=== PATIENT | male | born 1955 | race Caucasian/White ===

== ENCOUNTER 2020-03-06 04:17 | Observation (INO) ==
[2020-03-06] MEDS ORDERED: Naloxone 0.4 MG/ML INJ IVP PRN (07:52)
[2020-03-06] MEDS ORDERED: Ondansetron 4 MG/2 ML VIAL IVP PRN (07:52)
[2020-03-06 13:36] LABS: Basophils # 0.1 K/mcL (0.0-0.2); Basophils % 0.5 %; Eosinophils # 0.2 K/mcL (0.0-0.6); Eosinophils % 1.4 %; Hematocrit 37.1 % (37.5-50.1); Hemoglobin 11.5 g/dL (12.9-16.9); Immature Granulocytes % 0.4 % (0-4); Lymphocytes # 1.5 K/mcL (0.6-4.6); Lymphocytes % 10.7 %; Mean Corpuscular Hemoglobin 31.8 pg (28.0-33.3); Mean Corpuscular Volume 102.5 fL (83.0-100.0); Mean Platelet Volume 10.6 fL (9.4-12.4); Monocytes # 1.1 K/mcL (0.0-1.3); Monocytes % 7.8 %; Neutrophils # 11.1 K/mcL (1.6-8.9); Platelet Count 246 K/mcL (140-400); Red Blood Count 3.62 M/mcL (4.19-5.50); Red Cell Distribution Width 14.4 % (11.5-14.5); Segmented Neutrophils % 79.2 %
[2020-03-06] MEDS: Artificial Tears SOLN 15 ML BOTTLE BOTH EYES SCH (20:59)
[2020-03-06] MEDS: Mirtazapine 15 MG TABLET PO SCH (20:59)
[2020-03-06] MEDS: Divalproex Sodium 125 MG CAPSULE PO SCH (20:59)
[2020-03-06] MEDS: Gabapentin 300 MG CAPSULE PO SCH (20:59)
[2020-03-06] MEDS: MetroNIDAZOLE 500 MG/100 ML 500 MG/100 ML BAG IVPB SCH (23:36)
[2020-03-07] MEDS: MetroNIDAZOLE 500 MG/100 ML 500 MG/100 ML BAG IVPB SCH ×2 (07:37→16:00)
[2020-03-07] MEDS: Gabapentin 300 MG CAPSULE PO SCH ×2 (07:40→21:28)
[2020-03-07] MEDS: Artificial Tears SOLN 15 ML BOTTLE BOTH EYES SCH ×2 (07:40→21:28)
[2020-03-07] MEDS: Loratadine 10 MG TABLET PO SCH (07:40)
[2020-03-07] MEDS: Divalproex Sodium 125 MG CAPSULE PO SCH ×2 (07:40→21:28)
[2020-03-07] MEDS: *HR* Digoxin 0.125 MG TABLET PO SCH (07:40)
[2020-03-07] MEDS: Cyanocobalamin (B-12) 1,000 MCG TABLET PO SCH (07:40)
[2020-03-07 14:17] LABS: Basophils # 0.1 K/mcL (0.0-0.2); Basophils % 0.4 %; Eosinophils % 0.2 %; Hematocrit 33.3 % (37.5-50.1); Hemoglobin 10.8 g/dL (12.9-16.9); Immature Granulocytes % 0.6 % (0-4); Lymphocytes # 1.4 K/mcL (0.6-4.6); Mean Corpuscular HGB Conc 32.4 g/dL (31.6-35.5); Mean Corpuscular Hemoglobin 31.6 pg (28.0-33.3); Mean Corpuscular Volume 97.4 fL (83.0-100.0); Mean Platelet Volume 10.7 fL (9.4-12.4); Monocytes # 1.2 K/mcL (0.0-1.3); Monocytes % 7.1 %; Neutrophils # 14.4 K/mcL (1.6-8.9); Platelet Count 232 K/mcL (140-400); Red Blood Count 3.42 M/mcL (4.19-5.50); Segmented Neutrophils % 83.7 %; White Blood Count 17.3 K/mcL (4.3-11.1)
[2020-03-07 14:31] LABS: BUN/Creatinine Ratio 21 (6-26); Blood Urea Nitrogen 18 mg/dL (8-23); Calcium 8.3 mg/dL (8.6-10.3); Carbon Dioxide 25 mEq/L (23-29); Chloride 109 mEq/L (98-107); Glucose 89 mg/dL (70-105); Magnesium 1.6 mg/dL (1.6-2.6); Osmolality,Calculated 293 (280-300); Sodium 141 mEq/L (136-145); eGFR For African Americans > 60 (> 60); eGFR For Non-African Americans > 60 (> 60)
[2020-03-07] MEDS: Mirtazapine 15 MG TABLET PO SCH (21:28)
[2020-03-08] MEDS: MetroNIDAZOLE 500 MG/100 ML 500 MG/100 ML BAG IVPB SCH ×3 (00:17→17:40)
[2020-03-08 05:39] LABS: Basophils # 0.1 K/mcL (0.0-0.2); Basophils % 0.4 %; Eosinophils # 0.1 K/mcL (0.0-0.6); Eosinophils % 0.6 %; Hematocrit 32.4 % (37.5-50.1); Hemoglobin 10.4 g/dL (12.9-16.9); Immature Granulocytes % 0.4 % (0-4); Lymphocytes # 1.4 K/mcL (0.6-4.6); Mean Corpuscular HGB Conc 32.1 g/dL (31.6-35.5); Mean Corpuscular Hemoglobin 31.6 pg (28.0-33.3); Mean Corpuscular Volume 98.5 fL (83.0-100.0); Mean Platelet Volume 10.7 fL (9.4-12.4); Monocytes # 1.1 K/mcL (0.0-1.3); Monocytes % 7.5 %; Neutrophils # 11.4 K/mcL (1.6-8.9); Platelet Count 223 K/mcL (140-400); Red Blood Count 3.29 M/mcL (4.19-5.50); Red Cell Distribution Width 14.1 % (11.5-14.5); Segmented Neutrophils % 81.1 %; White Blood Count 14.1 K/mcL (4.3-11.1)
[2020-03-08 05:58] LABS: BUN/Creatinine Ratio 20 (6-26); Blood Urea Nitrogen 18 mg/dL (8-23); Calcium 8.2 mg/dL (8.6-10.3); Carbon Dioxide 26 mEq/L (23-29); Chloride 109 mEq/L (98-107); Glucose 103 mg/dL (70-105); Osmolality,Calculated 292 (280-300); Potassium 3.7 mEq/L (3.5-5.1); Sodium 140 mEq/L (136-145); eGFR For African Americans > 60 (> 60); eGFR For Non-African Americans > 60 (> 60)
[2020-03-08] MEDS ORDERED: *HR* FentaNYL (PF) 100 MCG/2 ML VIAL IVP PRN (09:43)
[2020-03-08] MEDS: *HR* Digoxin 0.125 MG TABLET PO SCH (12:10)
[2020-03-08] MEDS: Divalproex Sodium 125 MG CAPSULE PO SCH ×2 (12:10→19:30)
[2020-03-08] MEDS: Gabapentin 300 MG CAPSULE PO SCH ×2 (12:10→19:30)
[2020-03-08] MEDS: Cyanocobalamin (B-12) 1,000 MCG TABLET PO SCH (12:10)
[2020-03-08] MEDS: Loratadine 10 MG TABLET PO SCH (12:11)
[2020-03-08] MEDS: Artificial Tears SOLN 15 ML BOTTLE BOTH EYES SCH ×3 (12:13→19:33)
[2020-03-08] MEDS: Ringers Solution, Lactated 1,000 ML IVC SCH ×2 (12:28→19:44)
[2020-03-08] MEDS ORDERED: *HR* Propofol 200 MG/20 ML VIAL IVP ONE (16:52)
[2020-03-08] MEDS ORDERED: *HR* Etomidate 20 MG/10 ML AMPUL IVP ONE (16:52)
[2020-03-08] MEDS ORDERED: Lidocaine -MPF 2% 5 ML VIAL INFILT ONE (16:52)
[2020-03-08] MEDS: Mirtazapine 15 MG TABLET PO SCH (19:30)
[2020-03-09] MEDS: MetroNIDAZOLE 500 MG/100 ML 500 MG/100 ML BAG IVPB SCH ×2 (00:02→09:13)
[2020-03-09] MEDS: Ringers Solution, Lactated 1,000 ML IVC SCH (05:06)
[2020-03-09] MEDS: Divalproex Sodium 125 MG CAPSULE PO SCH ×2 (09:11→19:49)
[2020-03-09] MEDS: *HR* Digoxin 0.125 MG TABLET PO SCH (09:11)
[2020-03-09] MEDS: Gabapentin 300 MG CAPSULE PO SCH ×2 (09:11→19:49)
[2020-03-09] MEDS: Artificial Tears SOLN 15 ML BOTTLE BOTH EYES SCH ×2 (09:12→19:49)
[2020-03-09] MEDS: Loratadine 10 MG TABLET PO SCH (09:12)
[2020-03-09] MEDS: Cyanocobalamin (B-12) 1,000 MCG TABLET PO SCH (09:12)
[2020-03-09] MEDS: metroNIDAZOLE 500 MG TABLET PO SCH ×3 (09:58→19:49)
[2020-03-09] MEDS: Mirtazapine 15 MG TABLET PO SCH (19:48)
[2020-03-09] MEDS: Acetaminophen 325 MG TABLET PO PRN (19:49)
[2020-03-10] MEDS: Acetaminophen 325 MG TABLET PO PRN (03:10)
[2020-03-10] MEDS: *HR* Digoxin 0.125 MG TABLET PO SCH (08:01)
[2020-03-10] MEDS: Cyanocobalamin (B-12) 1,000 MCG TABLET PO SCH (08:01)
[2020-03-10] MEDS: Gabapentin 300 MG CAPSULE PO SCH ×2 (08:01→20:44)
[2020-03-10] MEDS: Loratadine 10 MG TABLET PO SCH (08:01)
[2020-03-10] MEDS: metroNIDAZOLE 500 MG TABLET PO SCH ×3 (08:01→20:44)
[2020-03-10] MEDS: Divalproex Sodium 125 MG CAPSULE PO SCH ×2 (08:01→20:43)
[2020-03-10] MEDS: Artificial Tears SOLN 15 ML BOTTLE BOTH EYES SCH ×2 (08:02→20:43)
[2020-03-10] MEDS: Mirtazapine 15 MG TABLET PO SCH (20:44)
[2020-03-11] MEDS: Artificial Tears SOLN 15 ML BOTTLE BOTH EYES SCH (09:10)
[2020-03-11] MEDS: Gabapentin 300 MG CAPSULE PO SCH (09:10)
[2020-03-11] MEDS: Cyanocobalamin (B-12) 1,000 MCG TABLET PO SCH (09:10)
[2020-03-11] MEDS: metroNIDAZOLE 500 MG TABLET PO SCH ×2 (09:10→15:44)
[2020-03-11] MEDS: Divalproex Sodium 125 MG CAPSULE PO SCH (09:10)
[2020-03-11] MEDS: *HR* Digoxin 0.125 MG TABLET PO SCH (09:10)
[2020-03-11] MEDS: Loratadine 10 MG TABLET PO SCH (09:10)
[2020-03-11] MEDS: Acetaminophen 325 MG TABLET PO PRN (15:44)
[2020-03-11 16:06] VITALS: BP 118/78
== END 2020-03-11 16:53 ==
LOC: CDU → SUATTDRO 07:16 → CDU 07:28 → 3ANU 16:57
PROVIDERS: ADMIT Pharmacist; ATTEND Family Medicine